=== PATIENT | male | born 1995 | race Caucasian/White ===

== ENCOUNTER 2019-01-28 01:30 | Emergency (ER) | payer BC ==
[~2019-01-28] VITALS: Ht 180.3 cm; Wt 157.4 kg
[2019-01-28 01:46] VITALS: BP 135/94
[2019-01-28] MEDS ORDERED: HYDROcodone/APAP 5/325MG 1 TAB TABLET PO ONE (02:00)
[2019-01-28] MEDS ORDERED: HYDR-3165 PO (02:05)
--- NOTE | 2019-01-28 02:06 | PHYS DOC ---
Past History Past Medical History: No Pertinent History Past Surgical History: No Surgical History Alcohol Use: None Drug Use: None Adult General Chief Complaint Chief Complaint: DENTAL PROBLEM [facility] HPI 23-year-old male presents with left lower dental pain. Patient states that he has been having some trouble with dysuria for a couple months. It has gotten worse the last week or so. Today he has been hurting him enough to not allow him to sleep. He has not had fever or chills. He has a feeling there that he believes has decay or a fracture underneath it. He plans to call a dentist to day. He has no other complaints. Review of Systems Review of Systems Constitutional: Denies fever or chills [] Eyes: Denies change in visual acuity, redness, or eye pain [] HENT: Denies nasal congestion or sore throat. Dental pain. [] Respiratory: Denies cough or shortness of breath [] Cardiovascular: No additional information not addressed in HPI [] GI: Denies abdominal pain, nausea, vomiting, bloody stools or diarrhea [] : Denies dysuria or hematuria [] Musculoskeletal: Denies back pain or joint pain [] Integument: Denies rash or skin lesions [] Neurologic: Denies headache, focal weakness or sensory changes [] Endocrine: Denies polyuria or polydipsia [] All other systems were reviewed and found to be within normal limits, except as documented in this note. Allergies Allergies Allergies Coded Allergies Type Severity Reaction Last Updated Verified No Known Drug Allergies 10/08/15 No Physical Exam Physical Exam Constitutional: Well developed, well nourished, no acute distress, non-toxic appearance. [] HENT: Normocephalic, atraumatic, bilateral external ears normal, oropharynx moist, no oral exudates, nose normal. Dental caries of teeth 17 and 18.[] Eyes: PERRLA, EOMI, conjunctiva normal, no discharge. [] Neck: Normal range of motion, no tenderness, supple, no stridor. [] Cardiovascular:Heart rate regular rhythm, no murmur [] Lungs & Thorax: Bilateral breath sounds clear to auscultation [] Abdomen: Bowel sounds normal, soft, no tenderness, no masses, no pulsatile masses. [] Skin: Warm, dry, no erythema, no rash. [] Back: No tenderness, no CVA tenderness. [] Extremities: No tenderness, no cyanosis, no clubbing, ROM intact, no edema. [] Neurologic: Alert and oriented X 3, normal motor function, normal sensory function, no focal deficits noted. [] Psychologic: Affect normal, judgement normal, mood normal. [] EKG EKG [] Radiology/Procedures Radiology/Procedures [] Course & Med Decision Making Course & Med Decision Making Pertinent Labs and Imaging studies reviewed. (See chart for details) The patient did not have swollen gums or any palpable pus pocket. I reviewed the drug database and the patient has no entries. He has a ride home so I will give him one [place] 5/325 in the ED. I will also give him a short prescription for 10 of the same. I stressed the importance of calling his dentist today. He states verbal understanding. He is stable for discharge at this time. [] Dragon Disclaimer Dragon Disclaimer This electronic medical record was generated, in whole or in part, using a voice recognition dictation system. Departure Departure: Impression: Primary Impression: Pain due to dental caries Disposition: 01 HOME, SELF-CARE Condition: STABLE Referrals: RODRIGUE JUNIOR MD (PCP) Patient Instructions: Dental Pain, [id number] Scripts Hydrocodone Bit/Acetaminophen ([place] 5-325 TABLET) 1 Each Tablet 1 TAB PO PRN Q6HRS PRN for PAIN, #10 TAB 0 Refills Prov: SUNSHINE SILVA DO 01/28/19 SUNSHINE SILVA DO Jan 28, 2019 02:06
== END 2019-01-28 02:14 | disposition home or self-care (01) ==
LOC: ER 01:30
DX: K02.9 Dental caries, unspecified (principal); R30.0 Dysuria
CPT/HCPCS: 99283